=== PATIENT | female | born 1975 | race Two or more races ===

== ENCOUNTER 2017-09-23 08:16 | Inpatient (IN) | payer BC ==
[~2017-09-23] VITALS: Ht 139.7 cm; Wt 73.5 kg
--- NOTE | ~2017-09-23 | OP ---
PATIENT NAME: DEDRICK PISANO MEDICAL RECORD: [id number] :79 LOCATION:[id number] ADMISSION DATE:09/23/17 SURGEON: ARI ALEXIS MD DATE OF OPERATION: 09/23/2017 PREDELIVERY DIAGNOSIS: Active labor at term. POSTDELIVERY DIAGNOSIS: Mother delivered at term. PROCEDURE PERFORMED: Vaginal delivery. ATTENDING: Ari Alexis MD ANESTHESIA: None. FINDINGS: Viable male , vertex presentation, Apgars 9 and 9, weight 2960 grams. Laceration none. Placenta spontaneous and intact. ESTIMATED BLOOD LOSS: 350 cc. DISPOSITION: Mother and infant recovered in the room. TRANSINT:[id number] Voice Confirmation ID: [id number] DOCUMENT ID: [id number] ARI ALEXIS MD at 1326 CC: [id number] DICTATION DATE: 09/23/17 1340 FULFILLMENT ASSOCIATE: 09/23/17 2337 DIS IN 09/24/17 [facility] [address] [place] [address]
--- NOTE | ~2017-09-23 | DS ---
PATIENT:DEDRICK PISANO :79 MEDICAL RECORD: [id number] DISCHARGE SUMMARY ADMISSION DATE: 09/23/17 DISCHARGE DATE: 09/24/17 DATE OF ADMISSION: 09/23/2017. DATE OF DISCHARGE: 09/24/2017. ADMISSION DIAGNOSIS: Active labor at term. DISCHARGE DIAGNOSIS: Mother delivered at term. PROCEDURE PERFORMED: Vaginal delivery. ATTENDING: Ari Sheppard MD HISTORY OF PRESENT ILLNESS: See the H&P in the chart. SUMMARY OF HOSPITALIZATION: The patient was admitted in active labor and delivered without incident. There was a delayed bleed and at the time of discharge vital signs are stable and the patient is afebrile. The bleed was treated with IM Methergine and oral misoprostol. The patient has minimal moderate lochia at this time. She has no other complaints and will be discharged home with [id number] medications for pain management. The patient has been counseled for contraception and will follow up in 6 weeks. TRANSINT:[id number] Voice Confirmation ID: [id number] DOCUMENT ID: [id number] ARI SHEPPARD MD at 1326 CC: [id number] DICTATION DATE: 09/24/17 1418 SOLE BUFFER: 09/24/17 1537 DIS IN 09/24/17 [place] [id number] [place] [address]
[2017-09-23 08:48] VITALS: BP 123/60; Ht 139.7 cm; Wt 73.5 kg
[2017-09-23 09:16] LABS: MCHC 34.1 g/dL (31.0-37.0); MEAN PLATELET VOLUME 10.5 fL (7.4-10.4); RBC 4.66 10x6/uL (4.00-5.40); RDW 14.1 % (11.5-14.5); WBC 8.1 10x3/uL (4.8-10.8)
[2017-09-23 15:51] VITALS: BP 116/56
[2017-09-23 16:03] VITALS: BP 18/56
[2017-09-23 16:59] VITALS: BP 122/64
[2017-09-23 19:14] VITALS: BP 97/54
[2017-09-24 00:09] VITALS: BP 105/52
[2017-09-24 07:18] VITALS: BP 109/55
[2017-09-24 14:09] VITALS: BP 106/58
[2017-09-24] MEDS ORDERED: IBUPROFEN800 MG PO (14:37)
[2017-09-26 03:10] LABS: RAPID PLASMA REAGIN Non Reactive (Non Reactive)
== END 2017-09-24 15:55 | disposition home or self-care (01) | DRG 774 ==
LOC: D.LDO 08:16 → D.LD 08:42
PROVIDERS: Obstetrics & Gynecology
PROC: 10E0XZZ Delivery of Products of Conception, External Approach (ICD-10-PCS; principal; 2017-09-23)
DX: O72.2 Delayed and secondary postpartum hemorrhage (principal); Z37.0 Single live birth; Z3A.38 38 weeks gestation of pregnancy

== ENCOUNTER 2018-06-03 19:00 | Emergency (ER) | payer BC ==
[~2018-06-03] VITALS: Ht 139.7 cm; Wt 57.6 kg
[~2018-06-03 19:00] MED LIST: IBUPROFEN800 MG PO
[2018-06-03 19:14] VITALS: Ht 139.7 cm; Wt 57.6 kg
[2018-06-03] MEDS ORDERED: AMOXICILLIN500 M1 PO (20:44)
[2018-06-03] MEDS ORDERED: GUAIFENESI100 MG/5 M PO (20:44)
[2018-06-03 21:16] VITALS: BP 114/57
== END 2018-06-03 21:16 | disposition home or self-care (01) ==
LOC: D.ER 19:00
DX: J06.9 Acute upper respiratory infection, unspecified (principal); J40 Bronchitis, not specified as acute or chronic; R50.9 Fever, unspecified